=== PATIENT | male | born 1985 | race Caucasian/White ===

== ENCOUNTER 2024-03-24 13:40 | Emergency (ER) | payer BC, SELFPAY ==
--- NOTE | ~2024-03-24 | XR_ITS ---
EXAM: XR knee LT min 4V DATE: 03/24/2024 14:10 HISTORY: pain, knee giving out RADIATES IN TO HIP NON WEIGHTBE. . COMPARISON: None available. FINDINGS: Normal mineralization. No fracture or dislocation. No lytic or blastic lesion. Joint space s are maintained. No erosion or periosteal change. Soft tissues within normal limits. IMPRESSION: No acute osseous finding in the left knee. Reviewed, dictated and finalized at location K.
[2024-03-24 13:42] VITALS: BP 185/97; PULSE 90; RESP 18; TEMP 36.8; O2SAT 98
--- NOTE | 2024-03-24 19:59 | ED.LOWEXIN ---
HPI - Extremity Injury (Lower) General Chief Complaint: Extremity Injury, Lower Stated Complaint: Left Knee Pain Time Seen by Provider: 03/24/24 14:18 History of Present Illness HPI Narrative: The patient states that about a week ago he was climbing a ladder and thinks he sprained his left knee, since then sometimes he feels like his left knee will give out. Review of Systems Review of Systems: All systems reviewed & are unremarkable except as noted in HPI and below Exam Narrative: EXAMINATION OF ORGAN SYSTEMS/BODY AREAS: Constitutional: Vital signs per nursing GENERAL:[No acute distress, non-toxic appearing.] HEAD: Normal with no signs of head trauma. EYES: EOMI, conjunctiva normal ENT: Hearing grossly intact LUNGS: Nonlabored breathing. HEART: [Regular rate and rhythm] , well-perfused foot, normal DP pulse ABD: [Soft], [nontender to palpation] EXT: Normal range of motion, very small effusion to left knee SKIN: [No rashes or lesions.] NEURO: [Alert and oriented x 3. No gross focal sensory or strength deficits.] PSYCH: Normal affect Course Vital Signs Vital signs: Vital Signs Temperature 98.3 F 03/24/24 13:42 Pulse Rate 90 03/24/24 13:42 Respiratory Rate 18 03/24/24 13:42 Blood Pressure 185/97 H 03/24/24 13:42 Pulse Oximetry 98 03/24/24 13:42 Oxygen Delivery Room Air 03/24/24 13:42 Temperature 98.3 F 03/24/24 13:42 Pulse Rate 90 03/24/24 13:42 Respiratory Rate 18 03/24/24 13:42 Blood Pressure 185/97 H 03/24/24 13:42 Pulse Oximetry 98 03/24/24 13:42 Oxygen Delivery Room Air 03/24/24 13:42 MDM - Extremity Injury (Lower) MDM Narrative Medical decision making narrative: 38-year-old male presents with left knee pain, he is neurovascularly intact, there is a small effusion, x-ray does not show any acute fracture, no immobilizer placed and crutches given and I did offer follow-up to Orthopedics however patient does not live here, I have asked him to follow-up with orthopedic surgery when he gets home. Patient agreeable to this plan with return precautions. Discharge Plan Discharge Clinical Impression: Knee sprain Patient Disposition: Home, Self-Care Condition: Stable Instructions: Antibiotic Form, Knee Sprain (ED) Additional Instructions: please follow-up with an orthopedic surgeon when you get back to your hometown. you can always return to the emergency room for any further issues. Follow-up/Referrals: PHYSICIAN,VALIDATION INTERN [Primary Care Provider] -
== END 2024-03-24 15:26 | disposition home or self-care (01) ==
LOC: ANHED 14:39
PROVIDERS: Emergency Provider Emergency Medicine
DX: S83.92XA Sprain of unspecified site of left knee, initial encounter (principal); X58.XXXA Exposure to other specified factors, initial encounter
CPT/HCPCS: 73564; 99283